=== PATIENT | male | born 1965 | race Caucasian/White ===

== ENCOUNTER 2019-07-26 13:43 | Emergency (ER) | payer BC ==
[2019-07-26] MEDS ORDERED: KETOROLAC TROMETHAMINE INJ 30 MG/ML VIAL IM ONE (14:01)
--- NOTE | 2019-07-26 14:40 | ED.PDOC ---
History of Present Illness - General Chief Complaint: Problem Stated Complaint: left groin pain/trouble urinating Time Seen by Provider: 07/26/19 13:45 Source: patient Exam Limitations: no limitations - History of Present Illness Initial Comments: he patient is a 53-year-old male presenting to the emergency room secondary to left inguinal pain present for at least the last 3 weeks but a little worse today. He does not have any pain in the left testicle. He has been having some more difficulty with urinating. No burning with urination. No frequency. No flank pain. No erythema in the area. No significant swelling. On examination pain appears to be in the spermatic cord at the level just proximal to and over the symphysis pubis. again there is no erythema. The patient has been having more difficulty with urinating for the past 3 or 4 months. No rectal pain. No fever. Pain is worse with movement as well as sometimes with coughing. Timing/Duration: unsure Severity: moderate Improving Factors: nothing Worsening Factors: other Associated Symptoms: denies symptoms Allergies/Adverse Reactions: Allergies NO KNOWN ALLERGY Allergy (Verified 08/06/15 05:38) Home Medications: Ambulatory Orders Albuterol Inhaler [Ventolin Hfa Inhaler] 2 puff INH QID PRN #2 inh 08/06/15 Insulin Glargine [Lantus Solostar] 40 unit SC BID 08/06/15 Albuterol Sulfate Nebs [Proventil Nebs] 2 puff INH PRN PRN 02/10/16 Citalopram Hydrobromide [Celexa] 60 mg PO DAILY 02/10/16 Cefuroxime Axetil [Ceftin] 500 mg PO Q12H #14 tab 02/11/16 HYDROcodone 5MG/APAP 325MG [[place] 5/325] 1 ea PO Q4H PRN #25 tab 02/11/16 Ciprofloxacin [Cipro] 500 mg PO BID #14 tab 07/26/19 Meloxicam [Mobic] 7.5 mg PO BID PRN #14 tab 07/26/19 Tamsulosin HCl [Flomax] 0.4 mg PO DAILY #20 cap 07/26/19 Review of Systems - Review of Systems Constitutional: States: no symptoms reported EENTM: States: no symptoms reported Respiratory: States: no symptoms reported Cardiology: States: no symptoms reported Gastrointestinal/Abdominal: States: no symptoms reported Genitourinary: States: see HPI Musculoskeletal: States: no symptoms reported Skin: States: no symptoms reported Neurological: States: no symptoms reported Endocrine: States: no symptoms reported All other Systems: No Change from Baseline Past Medical History (General) - Patient Medical History Hx Seizures: No Hx Stroke: No Hx Dementia: No Hx Asthma: Yes Hx of COPD: No Hx Cardiac Disorders: No Hx Congestive Heart Failure: No Hx Pacemaker: No Hx Hypertension: No Hx Thyroid Disease: No Hx Diabetes: Yes Hx Gastroesophageal Reflux: No Hx Renal Disease: No Hx Cancer: No Hx of HIV: No Hx Hepatitis C: No Hx MRSA: No Surgical History: appendectomy - Vaccination History Hx Tetanus, Diphtheria Vaccination: Yes Hx Influenza Vaccination: No Hx Pneumococcal Vaccination: No - Social History Hx Tobacco Use: Yes Hx Chewing Tobacco Use: No Hx Alcohol Use: No Hx Substance Use: No Hx Substance Use Treatment: No Hx Depression: No Hx Physical Abuse: No Hx Emotional Abuse: No Hx Suspected Abuse: No - Female History Patient : No Family Medical History - Family History Mother Living Status: Still Living Hx Family Asthma: Yes Hx Family Diabetes: Yes Physical Exam - Physical Exam General Appearance: Alert, Comfortable, No apparent distress Eye Exam: bilateral normal Ears, Nose, Throat: hearing grossly normal, normal pharynx Neck: non-tender, full range of motion Respiratory: no respiratory distress, no accessory muscle use Cardiovascular/Chest: normal peripheral pulses, no edema, other - regular rate Peripheral Pulses: radial,right: 2+, radial,left: 2+ Gastrointestinal/Abdominal: non tender, soft Rectal Exam: other - see history of present illness Extremity: normal range of motion, no pedal edema, normal capillary refill Neurologic: recordist II-XII nml as tested, alert, normal mood/affect, oriented x 3 Skin Exam: normal color Comments: Vital Signs - 24 hr 07/26/19 13:53 Temperature 96.9 F L Pulse Rate [ 94 H Left Brachial] Respiratory 16 Rate Blood Pressure 149/91 [Left Arm] O2 Sat by Pulse 95 Oximetry Progress - Progress Progress: 07/26/19 14:41 the patient is a 53-year-old male presenting to the emergency room secondary to what appears to be pain in the left spermatic cord. I'm uncertain at this time if this is due to a small localized infection or whether this is traumatic possibly from an unremembered blunt trauma or possibly a small developing hernia at the site. The patient should do exercises to strengthen his abdominal muscles to help reduce the size of any early developing hernia. The patient will be written for Mobic for pain for as needed use. He will also be placed on ciprofloxacin for the next week. For his longer-term symptoms of more difficulty with urination he is going to be placed on 2 weeks of Flomax as a trial. Needs to follow back up with his primary care doctor for this of course. ER warnings were given for any significant worsening. Urinalysis was reassuring here today. Tighter fitting underwear for the next few weeks may also help reduce symptoms. nasreen wiley [id number] - Results/Orders Results/Orders: Laboratory Results - last 24 hr 07/26/19 14:00 Urine Color Yellow Urine Appearance Clear Urine pH 7.0 Ur Specific [place] 1.020 Urine Protein Negative Urine Glucose (UA) 500 H Urine Ketones Trace Urine Blood Trace-intact H Urine Nitrite Negative Urine Bilirubin Negative Urine Urobilinogen 2.0 H Ur Leukocyte Esterase Negative Urine RBC 1-3 Urine WBC 0 Ur Epithelial Cells 0-1 Urine Bacteria Rare Urine Mucus Moderate Departure - Departure Clinical Impression: Spermatic cord pain, Urinary hesitancy Disposition: Discharge to Home or Self Care Condition: Fair Departure Forms: ED Discharge - Pt. Copy, Patient Portal Self Enrollment Diet: diabetic diet Activity: increase activity as tolerated Referrals: JUDITH LEVY,AI Webster [Primary Care Provider] - 1-2 Weeks Prescriptions: Ciprofloxacin [Cipro] 500 mg PO BID #14 tab Meloxicam [Mobic] 7.5 mg PO BID PRN #14 tab PRN Reason: Mild To Moderate Pain Tamsulosin HCl [Flomax] 0.4 mg PO DAILY #20 cap Home Medications: Ambulatory Orders Albuterol Inhaler [Ventolin Hfa Inhaler] 2 puff INH QID PRN #2 inh 08/06/15 Insulin Glargine [Lantus Solostar] 40 unit SC BID 08/06/15 Albuterol Sulfate Nebs [Proventil Nebs] 2 puff INH PRN PRN 02/10/16 Citalopram Hydrobromide [Celexa] 60 mg PO DAILY 02/10/16 Cefuroxime Axetil [Ceftin] 500 mg PO Q12H #14 tab 02/11/16 HYDROcodone 5MG/APAP 325MG [[place] 5/325] 1 ea PO Q4H PRN #25 tab 02/11/16 Ciprofloxacin [Cipro] 500 mg PO BID #14 tab 07/26/19 Meloxicam [Mobic] 7.5 mg PO BID PRN #14 tab 07/26/19 Tamsulosin HCl [Flomax] 0.4 mg PO DAILY #20 cap 07/26/19 Additional Instructions: the patient is a 53-year-old male presenting to the emergency room secondary to what appears to be pain in the left spermatic cord. I'm uncertain at this time if this is due to a small localized infection or whether this is traumatic possibly from an unremembered blunt trauma or possibly a small developing hernia at the site. The patient should do exercises to strengthen his abdominal muscles to help reduce the size of any early developing hernia. The patient will be written for Mobic for pain for as needed use. He will also be placed on ciprofloxacin for the next week. For his longer-term symptoms of more difficulty with urination he is going to be placed on 2 weeks of Flomax as a trial. Needs to follow back up with his primary care doctor for this of course. ER warnings were given for any significant worsening. Urinalysis was reassuring here today. Tighter fitting underwear for the next few weeks may also help reduce symptoms.
[2019-07-26 15:03] VITALS: BP 164/100; TEMP 96.8; O2SAT 96
== END 2019-07-26 15:03 | disposition home or self-care (01) ==
LOC: ER 13:43
DX: N50.89 Other specified disorders of the male genital organs (principal); R39.11 Hesitancy of micturition; J45.909 Unspecified asthma, uncomplicated; E11.9 Type 2 diabetes mellitus without complications; Z87.891 Personal history of nicotine dependence; Z90.49 Acquired absence of other specified parts of digestive tract; Z79.899 Other long term (current) drug therapy; Z79.4 Long term (current) use of insulin
CPT/HCPCS: 81001; J1885

== ENCOUNTER 2019-09-08 22:10 | Emergency (ER) | payer BC ==
[2019-09-08] MEDS ORDERED: diazePAM INJ 10 MG/2 ML SYG IM ONE (22:38)
[2019-09-08] MEDS ORDERED: KETOROLAC TROMETHAMINE INJ 30 MG/ML VIAL IM ONE (22:39)
[2019-09-08] MEDS ORDERED: IPRATROPIUM/ALBUTEROL 3 ML VIAL NEB ONE ×3 (22:39→22:40)
[2019-09-08] MEDS ORDERED: methylPREDNISolone SODIUM SUC 125 MG/2 ML VIAL IM ONE (22:40)
--- NOTE | 2019-09-08 23:18 | RAD ---
EXAM DESCRIPTION: XR Chest,1 View CLINICAL HISTORY: 53 years Male sob TECHNIQUE: One view of the chest. COMPARISON: No prior exams provided for comparison. FINDINGS: The lungs are clear without focal consolidation, effusion, or pneumothorax. The cardiomediastinal silhouette and central pulmonary vasculature are normal. No acute osseous abnormalities. IMPRESSION: No acute cardiopulmonary abnormalities. Electronically signed by: Jes Evans MD 09/08/2019 11:16 PM [facility] END OPERATOR
--- NOTE | 2019-09-08 23:40 | ED.PDOC ---
History of Present Illness - General Chief Complaint: Blood Pressure Problem Stated Complaint: high blood pressure and neck pain Time Seen by Provider: 09/08/19 22:38 - History of Present Illness Initial Comments: c/o pain in the back of the head and neck since this morning , unable to move the neck 2/2 pain , decrease range of motion , ; gradually getting worse Timing/Duration: 4-6 hours, getting worse Severity: moderate Improving Factors: immobilization Worsening Factors: movement Associated Symptoms: denies symptoms Allergies/Adverse Reactions: Allergies NO KNOWN ALLERGY Allergy (Verified 08/06/15 05:38) Home Medications: Ambulatory Orders Albuterol Inhaler [Ventolin Hfa Inhaler] 2 puff INH QID PRN #2 inh 08/06/15 Insulin Glargine [Lantus Solostar] 40 unit SC BID 08/06/15 Albuterol Sulfate Nebs [Proventil Nebs] 2 puff INH PRN PRN 02/10/16 Citalopram Hydrobromide [Celexa] 60 mg PO DAILY 02/10/16 Cefuroxime Axetil [Ceftin] 500 mg PO Q12H #14 tab 02/11/16 HYDROcodone 5MG/APAP 325MG [[place] 5/325] 1 ea PO Q4H PRN #25 tab 02/11/16 Ciprofloxacin [Cipro] 500 mg PO BID #14 tab 07/26/19 Meloxicam [Mobic] 7.5 mg PO BID PRN #14 tab 07/26/19 Tamsulosin HCl [Flomax] 0.4 mg PO DAILY #20 cap 07/26/19 Baclofen 20 mg PO TID #15 tab 09/08/19 Diclofenac Sodium (Topical) [Diclofenac Sodium] 1 % TD Q6HR 5 Days gel 09/08/19 Naproxen [Naprosyn] 500 mg PO BID #10 tab 09/08/19 Review of Systems - Review of Systems Constitutional: States: no symptoms reported EENTM: States: no symptoms reported Respiratory: States: no symptoms reported Cardiology: States: no symptoms reported Gastrointestinal/Abdominal: States: no symptoms reported Genitourinary: States: no symptoms reported Musculoskeletal: States: see HPI Skin: States: no symptoms reported Neurological: States: no symptoms reported Endocrine: States: no symptoms reported Hematologic/Lymphatic: States: no symptoms reported Past Medical History (General) - Patient Medical History Hx Seizures: No Hx Stroke: No Hx Dementia: No Hx Asthma: Yes Hx of COPD: No Hx Cardiac Disorders: No Hx Congestive Heart Failure: No Hx Pacemaker: No Hx Hypertension: Yes Hx Thyroid Disease: No Hx Diabetes: Yes - IDDM Hx Gastroesophageal Reflux: No Hx Renal Disease: No Hx Cancer: No Hx of HIV: No Hx Hepatitis C: No Hx MRSA: No Surgical History: appendectomy - Vaccination History Hx Tetanus, Diphtheria Vaccination: No Hx Influenza Vaccination: No Hx Pneumococcal Vaccination: No Immunizations Up to Date: Yes - Social History Hx Tobacco Use: Yes Hx Chewing Tobacco Use: No Hx Alcohol Use: No Hx Substance Use: No Hx Substance Use Treatment: No Hx Depression: No Feels Threatened In Home Enviroment: No Feels Threatened In a Relationship: No Hx Physical Abuse: No Hx Emotional Abuse: No Hx Suspected Abuse: No - Activities of Daily Living Hospice Agency (if applicable):: None - Female History Patient is a Female of Child Bearing Age (10 -59 yrs old): No Patient : No Family Medical History - Family History Mother Living Status: Still Living Hx Family Asthma: Yes Hx Family Diabetes: Yes Physical Exam - Physical Exam General Appearance: Alert, Comfortable Eye Exam: bilateral normal Ears, Nose, Throat: normal ENT inspection, normal pharynx Neck: full range of motion, supple, normal inspection Respiratory: wheezing Cardiovascular/Chest: regular rate, rhythm, no edema, no gallop Gastrointestinal/Abdominal: soft Back Exam: other - tenderness over the L side of trapezius muscles , decrease range of neck movement Extremity: no pedal edema Neurologic: no motor/sensory deficits, alert, normal mood/affect, oriented x 3 Skin Exam: normal color Lymphatic: no adenopathy Progress - Results/Orders Results/Orders: 09/08/19 22:40 EKG Assessment ONCE 09/08/19 22:45 EKG STAT Laboratory Results WBC 10.2 K/mm3 (4.8-10.8) 09/08/19 22:55 RBC 5.15 M/mm3 (4.70-6.10) 09/08/19 22:55 Hgb 15.2 gm/dL (14.0-18.0) 09/08/19 22:55 Hct 45.2 % (42.0-52.0) 09/08/19 22:55 MCV 87.6 fl (80.0-94.0) 09/08/19 22:55 MCH 29.4 pg (27.0-31.0) 09/08/19 22:55 MCHC 33.5 g/dL (33.0-37.0) 09/08/19 22:55 RDW 13.5 % (11.5-14.5) 09/08/19 22:55 Plt Count 278 K/mm3 (130-400) 09/08/19 22:55 MPV 7.7 fl (7.40-10.4) 09/08/19 22:55 Absolute Neuts (auto) 5.80 K/uL (1.8-6.8) 09/08/19 22:55 Absolute Lymphs (auto) 2.70 K/uL (1.0-3.4) 09/08/19 22:55 Absolute Monos (auto) 1.30 K/uL (0.2-0.8) H 09/08/19 22:55 Absolute Eos (auto) 0.30 K/uL (0.0-0.4) 09/08/19 22:55 Absolute Basos (auto) 0.10 K/uL (0.0-0.1) 09/08/19 22:55 Neutrophils % 57.2 % (42.0-78.0) 09/08/19 22:55 Lymphocytes % 26.1 % (20.0-50.0) 09/08/19 22:55 Monocytes % 13.0 % (2.0-9.0) H 09/08/19 22:55 Eosinophils % 3.2 % (1.0-5.0) 09/08/19 22:55 Basophils % 0.5 % (0.0-2.0) 09/08/19 22:55 Sodium 142 mmol/L (135-145) 09/08/19 22:55 Potassium 3.4 mmol/L (3.6-5.0) L 09/08/19 22:55 Chloride 108 mmol/L (101-111) 09/08/19 22:55 Carbon Dioxide 26 mmol/L (21-31) 09/08/19 22:55 Anion Gap 11.4 (12-18) L 09/08/19 22:55 BUN 13 mg/dL (7-18) 09/08/19 22:55 Creatinine 0.60 mg/dL (0.6-1.3) 09/08/19 22:55 BUN/Creatinine Ratio 21.7 (10-20) H 09/08/19 22:55 Random Glucose 56 mg/dL (70-105) L 09/08/19 22:55 Serum Osmolality 280.9 mOsm/L (275-295) 09/08/19 22:55 Calcium 9.0 mg/dL (8.4-10.2) 09/08/19 22:55 Total Bilirubin 0.4 mg/dL (0.2-1.0) 09/08/19 22:55 AST 23 IU/L (10-42) 09/08/19 22:55 ALT 19 IU/L (10-60) 09/08/19 22:55 Alkaline Phosphatase 63 IU/L (42-121) 09/08/19 22:55 Troponin I < 0.02 ng/mL (0.01-0.05) 09/08/19 22:55 Serum Total Protein 7.0 gm/dL (6.4-8.2) 09/08/19 22:55 Albumin 3.9 g/dl (3.2-5.5) 09/08/19 22:55 Globulin 3.1 gm/dL (2.3-3.5) 09/08/19 22:55 Albumin/Globulin Ratio 1.3 (1.1-1.9) 09/08/19 22:55 - EKG/XRAY/CT EKG: Sinus Departure - Departure Clinical Impression: COPD with acute exacerbation, Neck pain on left side, Hypoglycemia, Benign hypertension Disposition: Discharge to Home or Self Care Condition: Good Departure Forms: ED Discharge - Pt. Copy, Patient Portal Self Enrollment Instructions: DI for High Blood Pressure Diet: resume usual diet, diabetic diet Activity: increase activity as tolerated, walking as tolerated Referrals: JUDITH ESTIMATOR LUMBER,AI Webster [Primary Care Provider] - 1-2 Weeks Prescriptions: Diclofenac Sodium (Topical) [Diclofenac Sodium] 1 % TD Q6HR 5 Days gel Baclofen 20 mg PO TID #15 tab Naproxen [Naprosyn] 500 mg PO BID #10 tab Home Medications: Ambulatory Orders Albuterol Inhaler [Ventolin Hfa Inhaler] 2 puff INH QID PRN #2 inh 08/06/15 Insulin Glargine [Lantus Solostar] 40 unit SC BID 08/06/15 Albuterol Sulfate Nebs [Proventil Nebs] 2 puff INH PRN PRN 02/10/16 Citalopram Hydrobromide [Celexa] 60 mg PO DAILY 02/10/16 Cefuroxime Axetil [Ceftin] 500 mg PO Q12H #14 tab 02/11/16 HYDROcodone 5MG/APAP 325MG [[place] 5/325] 1 ea PO Q4H PRN #25 tab 02/11/16 Ciprofloxacin [Cipro] 500 mg PO BID #14 tab 07/26/19 Meloxicam [Mobic] 7.5 mg PO BID PRN #14 tab 07/26/19 Tamsulosin HCl [Flomax] 0.4 mg PO DAILY #20 cap 07/26/19 Baclofen 20 mg PO TID #15 tab 09/08/19 Diclofenac Sodium (Topical) [Diclofenac Sodium] 1 % TD Q6HR 5 Days gel 09/08/19 Naproxen [Naprosyn] 500 mg PO BID #10 tab 09/08/19 Additional Instructions: Follow up PCP in 1-2 days
[2019-09-09 02:14] VITALS: BP 176/93; TEMP 97.9; O2SAT 94
== END 2019-09-09 01:45 | disposition home or self-care (01) ==
LOC: ER 22:10
DX: J44.1 Chronic obstructive pulmonary disease with (acute) exacerbation (principal); M54.2 Cervicalgia; E11.649 Type 2 diabetes mellitus with hypoglycemia without coma; I10 Essential (primary) hypertension; R51 Headache; Z79.4 Long term (current) use of insulin; Z79.899 Other long term (current) drug therapy; Z87.891 Personal history of nicotine dependence
CPT/HCPCS: 71045; 80053; 82947; 84484; 85025; 93005; 94640; J1885; J2930; J3360; J7620

== ENCOUNTER 2019-10-17 09:34 | Emergency (ER) | payer BC ==
[2019-10-17] MEDS ORDERED: ONDANSETRON ODT 8 MG TAB SL ONE (09:48)
[2019-10-17] MEDS ORDERED: PROMETHAZINE HCL 25 MG TAB PO ONE (09:48)
--- NOTE | 2019-10-17 10:07 | RAD ---
EXAM DESCRIPTION: Abdomen Flat Upright CLINICAL HISTORY: 53 years Male, [place] COMPARISON: None. TECHNIQUE: 2 view radiograph of the abdomen. IMPRESSION: Clear lung bases. No dilated small bowel or significant air-fluid levels. No pathologic calcification overlying the renal shadows or expected course of the ureters. No intra-abdominal free air appreciated. Lumbar spondylosis with mild dextrocurvature of the upper lumbar spine. Electronically signed by: Mayito Cohen MD 10/17/2019 10:06 AM [facility]
--- NOTE | 2019-10-17 11:18 | ED.PDOC ---
History of Present Illness - General Chief Complaint: GI Problem Stated Complaint: Nausea, vomiting, diarrhea Time Seen by Provider: 10/17/19 09:45 Source: patient Exam Limitations: no limitations - History of Present Illness Initial Comments: the patient's a 53-year-old male presenting to the emergency room secondary to nausea and vomiting starting last night around 10 PM. No blood and no bile. No diarrhea. Cramping. No point pain. No fever. His daughter had similar symptoms 36 hours ago. Timing/Duration: other - 12 hours Severity: moderate Improving Factors: nothing Worsening Factors: nothing Associated Symptoms: loss of appetite, malaise, nausea/vomiting Allergies/Adverse Reactions: Allergies NO KNOWN ALLERGY Allergy (Verified 10/17/19 09:44) Home Medications: Ambulatory Orders Albuterol Inhaler [Ventolin Hfa Inhaler] 2 puff INH QID PRN #2 inh 08/06/15 Insulin Glargine [Lantus Solostar] 40 unit SC BID 08/06/15 Albuterol Sulfate Nebs [Proventil Nebs] 2 puff INH PRN PRN 02/10/16 Citalopram Hydrobromide [Celexa] 60 mg PO DAILY 02/10/16 Cefuroxime Axetil [Ceftin] 500 mg PO Q12H #14 tab 02/11/16 HYDROcodone 5MG/APAP 325MG [[place] 5/325] 1 ea PO Q4H PRN #25 tab 02/11/16 Ciprofloxacin [Cipro] 500 mg PO BID #14 tab 07/26/19 Meloxicam [Mobic] 7.5 mg PO BID PRN #14 tab 07/26/19 Tamsulosin HCl [Flomax] 0.4 mg PO DAILY #20 cap 07/26/19 Baclofen 20 mg PO TID #15 tab 09/08/19 Diclofenac Sodium (Topical) [Diclofenac Sodium] 1 % TD Q6HR 5 Days gel 09/08/19 Naproxen [Naprosyn] 500 mg PO BID #10 tab 09/08/19 Ondansetron Odt [Zofran ODT] 4 mg PO Q8HR PRN #5 tab 10/17/19 Review of Systems - Review of Systems Constitutional: States: no symptoms reported, malaise EENTM: States: no symptoms reported Respiratory: States: no symptoms reported Cardiology: States: no symptoms reported Gastrointestinal/Abdominal: States: nausea, vomiting Genitourinary: States: no symptoms reported Musculoskeletal: States: no symptoms reported Skin: States: no symptoms reported Neurological: States: no symptoms reported Endocrine: States: no symptoms reported All other Systems: No Change from Baseline Past Medical History (General) - Patient Medical History Hx Seizures: No Hx Stroke: No Hx Dementia: No Hx Asthma: Yes Hx of COPD: No Hx Cardiac Disorders: No Hx Congestive Heart Failure: No Hx Pacemaker: No Hx Hypertension: Yes Hx Thyroid Disease: No Hx Diabetes: Yes Hx Gastroesophageal Reflux: No Hx Renal Disease: No Hx Cancer: No Hx of HIV: No Hx Hepatitis C: No Hx MRSA: No Surgical History: appendectomy - Vaccination History Hx Tetanus, Diphtheria Vaccination: No Hx Influenza Vaccination: No Hx Pneumococcal Vaccination: No - Social History Hx Tobacco Use: Yes Hx Chewing Tobacco Use: No Hx Alcohol Use: Yes - Daily Hx Substance Use: No Hx Substance Use Treatment: No Hx Depression: No Hx Physical Abuse: No Hx Emotional Abuse: No Hx Suspected Abuse: No - Female History Patient : No Family Medical History - Family History Mother Living Status: Still Living Hx Family Asthma: Yes Hx Family Diabetes: Yes Physical Exam - Physical Exam General Appearance: Alert, Comfortable, No apparent distress Eye Exam: bilateral normal Ears, Nose, Throat: hearing grossly normal, normal ENT inspection Neck: full range of motion, supple Respiratory: lungs clear, normal breath sounds, no respiratory distress, no accessory muscle use Cardiovascular/Chest: normal peripheral pulses, regular rate, rhythm - mild tachycardia, no edema Peripheral Pulses: radial,right: 2+, radial,left: 2+ Gastrointestinal/Abdominal: non tender, soft Rectal Exam: deferred Back Exam: no CVA tenderness, no vertebral tenderness Extremity: normal range of motion, non-tender, normal inspection, no pedal edema, normal capillary refill 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 He needs to keep himself well hydrated and eat small meals and maintain a bland diet for the next few days. Obviously if symptoms change or worsen in any significant way then he is to return here and additional workup will be warranted. X-ray is reassuring and the patient has responded positively to nausea medications so I do expect that he will be able to hydrate himself adequately as an outpatient using Zofran as needed. ER warnings were given. nasreen wiley [id number] - Results/Orders Results/Orders: acute abdominal series shows no acute pathology. Departure - Departure Clinical Impression: Gastroenteritis, Mild dehydration Disposition: Discharge to Home or Self Care Condition: Fair Departure Forms: ED Discharge - Pt. Copy, Patient Portal Self Enrollment Instructions: Viral Gastroenteritis Diet: bland diet Activity: increase activity as tolerated Referrals: JUDITH LEVY,AI Webster [Primary Care Provider] - 1-2 Weeks Prescriptions: Ondansetron Odt [Zofran ODT] 4 mg PO Q8HR PRN #5 tab PRN Reason: Nausea--Moderate Home Medications: Ambulatory Orders Albuterol Inhaler [Ventolin Hfa Inhaler] 2 puff INH QID PRN #2 inh 08/06/15 Insulin Glargine [Lantus Solostar] 40 unit SC BID 08/06/15 Albuterol Sulfate Nebs [Proventil Nebs] 2 puff INH PRN PRN 02/10/16 Citalopram Hydrobromide [Celexa] 60 mg PO DAILY 02/10/16 Cefuroxime Axetil [Ceftin] 500 mg PO Q12H #14 tab 02/11/16 HYDROcodone 5MG/APAP 325MG [[place] 5/325] 1 ea PO Q4H PRN #25 tab 02/11/16 Ciprofloxacin [Cipro] 500 mg PO BID #14 tab 07/26/19 Meloxicam [Mobic] 7.5 mg PO BID PRN #14 tab 07/26/19 Tamsulosin HCl [Flomax] 0.4 mg PO DAILY #20 cap 07/26/19 Baclofen 20 mg PO TID #15 tab 09/08/19 Diclofenac Sodium (Topical) [Diclofenac Sodium] 1 % TD Q6HR 5 Days gel 09/08/19 Naproxen [Naprosyn] 500 mg PO BID #10 tab 09/08/19 Ondansetron Odt [Zofran ODT] 4 mg PO Q8HR PRN #5 tab 10/17/19 Additional Instructions: the patient is a 53-year-old male presenting with what appears to be most likely a viral gastroenteritis. He needs to keep himself well hydrated and eat small meals and maintain a bland diet for the next few days. Obviously if symptoms change or worsen in any significant way then he is to return here and additional workup will be warranted. X-ray is reassuring and the patient has responded positively to nausea medications so I do expect that he will be able to hydrate himself adequately as an outpatient using Zofran as needed. ER warnings were given.
[2019-10-17 11:29] VITALS: BP 146/87; TEMP 100.2; O2SAT 96
== END 2019-10-17 11:30 | disposition home or self-care (01) ==
LOC: ER 09:34
DX: K52.9 Noninfective gastroenteritis and colitis, unspecified (principal); E86.0 Dehydration; J45.909 Unspecified asthma, uncomplicated; I10 Essential (primary) hypertension; E11.9 Type 2 diabetes mellitus without complications; Z87.891 Personal history of nicotine dependence; Z90.49 Acquired absence of other specified parts of digestive tract; Z79.899 Other long term (current) drug therapy; Z79.4 Long term (current) use of insulin
CPT/HCPCS: 74019; Q0169

== ENCOUNTER 2020-01-05 | Emergency (ER) | payer BC | END 2020-01-05 18:51 | disposition home or self-care (01) | DX: R53.83 Other fatigue (principal); R11.0 Nausea; R53.1 Weakness; J45.909 Unspecified asthma, uncomplicated; E11.9 Type 2 diabetes mellitus without complications; I10 Essential (primary) hypertension; Z87.891 Personal history of nicotine dependence; Z79.4 Long term (current) use of insulin; Z79.899 Other long term (current) drug therapy | CPT/HCPCS: 36415; 71045; 80053; 83690; 84484; 85025; 85610; 85730; 93005; J2405; J7030 ==

== ENCOUNTER 2020-05-03 02:37 | Emergency (ER) | payer BC ==
[2020-05-03] MEDS ORDERED: MORPHINE SULFATE INJ 10 MG/ML VIAL IV ONE (02:55)
[2020-05-03] MEDS ORDERED: ONDANSETRON INJ 4 MG/2 ML VIAL IV ONE (02:55)
--- NOTE | 2020-05-03 03:38 | ED.PDOC ---
History of Present Illness - General Chief Complaint: Abdominal Pain Stated Complaint: my stomach hurts for the last three days Time Seen by Provider: 05/03/20 03:14 Information Source: patient Exam Limitations: no limitations - History of Present Illness Initial Comments: 54 y/o male c/o severe RLQ pain in 3 episodes starting Monday. each time it is very severe and then goes away. He reports difficulty urinating and severe nausea. He has no back pain. Abdominal Pain Onset Location: RLQ Pain Radiation: no radiation Quality: severe, intermittent Timing/Duration: 7-24 hours, getting worse Improving Factors: nothing Worsening Factors: nothing - nausea Review of Systems - Review of Systems Constitutional: States: no symptoms reported EENTM: States: no symptoms reported Respiratory: States: no symptoms reported Cardiology: States: no symptoms reported Gastrointestinal/Abdominal: States: abdominal pain, nausea Genitourinary: States: other - difficulty urinating Musculoskeletal: States: no symptoms reported Skin: States: no symptoms reported Neurological: States: no symptoms reported Endocrine: States: no symptoms reported Past Medical History (General) - Patient Medical History Hx Seizures: No Hx Stroke: No Hx Dementia: No Hx Asthma: Yes Hx of COPD: No Hx Cardiac Disorders: No Hx Congestive Heart Failure: No Hx Pacemaker: No Hx Hypertension: Yes Hx Thyroid Disease: No Hx Diabetes: Yes Hx Gastroesophageal Reflux: No Hx Renal Disease: No Hx Cancer: No Hx of HIV: No Hx Hepatitis C: No Hx MRSA: No - Vaccination History Hx Tetanus, Diphtheria Vaccination: No Hx Influenza Vaccination: No Hx Pneumococcal Vaccination: No Immunizations Up to Date: No - Social History Hx Tobacco Use: Yes Hx Chewing Tobacco Use: No Hx Alcohol Use: No Hx Substance Use: No Hx Substance Use Treatment: No Hx Depression: No Hx Physical Abuse: No Hx Emotional Abuse: No Hx Suspected Abuse: No - Female History Patient : No Family Medical History - Family History Mother Living Status: Still Living Hx Family Asthma: Yes Hx Family Diabetes: Yes Physical Exam - Physical Exam General Appearance: Alert, No apparent distress Eyes, Ears, Nose, Throat Exam: PERRL/EOMI, normal ENT inspection Neck: non-tender, full range of motion, supple, normal inspection Respiratory: chest non-tender, lungs clear, normal breath sounds, no respiratory distress Cardiovascular/Chest: regular rate, rhythm, no edema, no JVD, no murmur Gastrointestinal/Abdominal: normal bowel sounds, soft, tenderness - no guarding or rebound Back Exam: normal inspection, no CVA tenderness Extremity: normal range of motion Neurologic: no motor/sensory deficits, alert, normal mood/affect, oriented x 3 Skin Exam: normal color, warm/dry Progress - Progress Progress: 05/03/20 04:05 Pain has subsided. No kidney stone on CT. Pt has had 3 episodes of the most severe pain he's ever had, difficulty urinating, and RBCs in his urine. He may have passed a tiny stone. Will observe for another hour - EKG/XRAY/CT EKG: Sinus, no ST T wave changes Comments: rate 88, normal EKG Departure - Departure Clinical Impression: Colic, ureteral Condition: Good Departure Forms: ED Discharge - Pt. Copy, Patient Portal Self Enrollment Referrals: JUDITH LEVY,AI Webster [Primary Care Provider] - 1-2 Weeks Prescriptions: Acetaminophen W/ Codeine [Tylenol W/ CODEINE #3] 1 ea PO Q6HR PRN 7 Days #20 PRN Reason: Moderate To Severe Pain Ondansetron HCl [Zofran] 4 mg PO Q8HRS PRN #8 tab PRN Reason: Pain Home Medications: Ambulatory Orders Albuterol Inhaler [Ventolin Hfa Inhaler] 2 puff INH QID PRN #2 inh 08/06/15 Insulin Glargine [Lantus Solostar] 40 unit SC BID 08/06/15 Albuterol Sulfate Nebs [Proventil Nebs] 2 puff INH PRN PRN 02/10/16 Citalopram Hydrobromide [Celexa] 60 mg PO DAILY 02/10/16 Cefuroxime Axetil [Ceftin] 500 mg PO Q12H #14 tab 02/11/16 HYDROcodone 5MG/APAP 325MG [Hannacroix 5/325] 1 ea PO Q4H PRN #25 tab 02/11/16 Ciprofloxacin [Cipro] 500 mg PO BID #14 tab 07/26/19 Meloxicam [Mobic] 7.5 mg PO BID PRN #14 tab 07/26/19 Tamsulosin HCl [Flomax] 0.4 mg PO DAILY #20 cap 07/26/19 Baclofen 20 mg PO TID #15 tab 09/08/19 Diclofenac Sodium (Topical) [Diclofenac Sodium] 1 % TD Q6HR 5 Days gel 09/08/19 Naproxen [Naprosyn] 500 mg PO BID #10 tab 09/08/19 Ondansetron Odt [Zofran ODT] 4 mg PO Q8HR PRN #5 tab 10/17/19 Acetaminophen [Tylenol] 650 mg PO Q6H PRN #30 tab 01/05/20 Ondansetron Tab [Zofran Tab] 4 mg PO TID PRN 5 Days #15 tab 01/05/20 Acetaminophen W/ Codeine [Tylenol W/ CODEINE #3] 1 ea PO Q6HR PRN 7 Days #20 05/03/20 Ondansetron HCl [Zofran] 4 mg PO Q8HRS PRN #8 tab 05/03/20
[2020-05-03 03:48] VITALS: O2SAT 98
--- NOTE | 2020-05-03 03:53 | CT ---
EXAM DESCRIPTION: CT abdomen/Pelvis w/o Contrast CLINICAL HISTORY: 54 years Male RLQ pain COMPARISON: 02/10/2016 TECHNIQUE: Multiple contiguous axial CT slices were taken from the diaphragms to the pubic symphysis without intravenous contrast. This exam was performed according to our departmental dose-optimization program, which includes automated exposure control, adjustment of the mA and/or kV according to patient size and/or use of iterative reconstruction technique. FINDINGS: The lung bases are clear. Visualized cardiomediastinal structures are normal. The liver, gallbladder, bile ducts, pancreas, spleen and adrenals are normal. The kidneys, ureters and bladder are unremarkable accounting for a 1 cm right simple renal cyst. The prostate is enlarged. The small bowel is normal. The appendix is surgically absent. The large bowel is normal. No ascites, pneumatosis or pneumoperitoneum. No lymphadenopathy. Aortic atherosclerosis. The IVC is normal. There are no abdominal wall hernia defects. No destructive osseous lesions. IMPRESSION: 1. No acute abnormality evident. Electronically signed by: Tyrone Hinojosa MD 05/03/2020 3:51 AM CDT
[2020-05-03 04:22] VITALS: BP 144/80
[2020-05-03 04:33] VITALS: TEMP 98.3
== END 2020-05-03 04:33 | disposition home or self-care (01) ==
LOC: ER 02:37
DX: N23 Unspecified renal colic (principal); R10.31 Right lower quadrant pain; R11.0 Nausea; E11.9 Type 2 diabetes mellitus without complications; R33.9 Retention of urine, unspecified; F17.200 Nicotine dependence, unspecified, uncomplicated
CPT/HCPCS: 74176; 80053; 81001; 85025; 93005; J2270; J2405